=== PATIENT | female | born 1965 | race Two or more races ===

== ENCOUNTER 2019-12-11 21:12 | Emergency (ER) | payer OTHER ==
[~2019-12-11] VITALS: Ht 160 cm; Wt 83.9 kg
[2019-12-11 22:33] VITALS: BP 140/74
[2019-12-11] MEDS ORDERED: KETOROLAC TROMETH 60MG/2ML VIAL IM ONE (22:45)
== END 2019-12-11 23:45 | disposition home or self-care (01) ==
LOC: ER 21:16
DX: S93.402A Sprain of unspecified ligament of left ankle, initial encounter (principal); W10.9XXA Fall (on) (from) unspecified stairs and steps, initial encounter; Y93.89 Activity, other specified; Y92.89 Other specified places as the place of occurrence of the external cause; Y99.8 Other external cause status
CPT/HCPCS: 73610; 96372; 99283; J1885